=== PATIENT | female | born 1970 | race Two or more races ===

== ENCOUNTER → 2020-02-15 | Outpatient (CLI) | payer OTHER | END | disposition home or self-care (01) | LOC: LAB 14:57 | PROVIDERS: ATTEND Nurse Practitioner Family | DX: U07.1 COVID-19 (principal) | CPT/HCPCS: 87635 ==

== ENCOUNTER → 2020-07-06 | Outpatient (CLI) | payer BC ==
[2020-07-06 08:52] LABS: Basophils # (auto) 0.1 10 ^3/uL (0-0.2); Basophils % (auto) 2.4 % (0.0-2.0); Eosinophils # (auto) 0.1 10 ^3/uL (0-0.8); Eosinophils % (auto) 1.6 % (0.0-7.0); Hematocrit 41.8 % (36.0-46.0); Hemoglobin 13.6 g/dL (12.2-16.2); Lymphocytes # (auto) 1.5 10 ^3/uL (0.4-5.4); Lymphocytes % (auto) 30.2 % (10.0-50.0); Mean Corpuscular Hemoglobin 25.9 pg (28.0-32.0); Mean Corpuscular Hgb Conc. 32.6 g/dL (32.0-36.0); Mean Corpuscular Volume 79.5 fL (80.0-100.0); Monocytes # (auto) 0.3 10 ^3/uL (0-1.3); Neutrophils # (auto) 2.9 10 ^3/uL (1.6-8.6); Neutrophils % (auto) 59.8 % (37.0-80.0); Platelet Count (auto) 250 10^3/uL (140-450); Red Blood Cells 5.26 10^6/uL (4.0-5.20); Red Cell Distribution Width 16.9 % (11.8-14.3); White Blood Cell 4.9 10^3/uL (4.4-10.8)
[2020-07-06 10:15] LABS: Follicle Stimulating Hormone 34.61 IU/L (SEE BELOW); Leuteinizing Hormone 11.6 IU/L
== END | disposition home or self-care (01) ==
LOC: LAB 08:38
PROVIDERS: ATTEND Obstetrics & Gynecology
DX: Z01.419 Encounter for gynecological examination (general) (routine) without abnormal findings (principal)
CPT/HCPCS: 36415; 82670; 83001; 83002; 84443; 85025

== ENCOUNTER → 2021-03-02 | Outpatient (CLI) | payer BC ==
[2021-03-02 09:30] LABS: Basophils # (auto) 0.1 10 ^3/uL (0-0.2); Basophils % (auto) 1.2 % (0.0-2.0); Eosinophils # (auto) 0.1 10 ^3/uL (0-0.8); Eosinophils % (auto) 1.3 % (0.0-7.0); Hematocrit 43.3 % (36.0-46.0); Hemoglobin 14.5 g/dL (12.2-16.2); Lymphocytes # (auto) 1.9 10 ^3/uL (0.4-5.4); Mean Corpuscular Hemoglobin 27.6 pg (28.0-32.0); Mean Corpuscular Hgb Conc. 33.6 g/dL (32.0-36.0); Mean Corpuscular Volume 82.1 fL (80.0-100.0); Monocytes # (auto) 0.4 10 ^3/uL (0-1.3); Monocytes % (auto) 5.2 % (0.0-12.0); Neutrophils % (auto) 66.3 % (37.0-80.0); Red Blood Cells 5.28 10^6/uL (4.0-5.20); Red Cell Distribution Width 14.2 % (11.8-14.3); White Blood Cell 7.5 10^3/uL (4.4-10.8)
[2021-03-02 11:12] LABS: Albumin 3.6 g/dL (3.4-5.0); Bilirubin, Total 0.5 mg/dL (0.2-1.0); Calcium 8.8 mg/dL (8.5-10.1); Total Protein 7.8 g/dL (6.4-8.2)
== END | disposition home or self-care (01) ==
LOC: LAB 09:14
PROVIDERS: ATTEND Nurse Practitioner Family
DX: I10 Essential (primary) hypertension (principal); E11.9 Type 2 diabetes mellitus without complications; E66.3 Overweight; F41.9 Anxiety disorder, unspecified
CPT/HCPCS: 36415; 80053; 80061; 82043; 83036; 84443; 85025

== ENCOUNTER 2021-07-20 14:53 | Emergency (ER) | payer BC ==
[~2021-07-20] VITALS: Ht 157.5 cm; Wt 77.1 kg
[2021-07-20] MEDS ORDERED: MORPHINE SULFATE 4 MG/ML SYR/VIAL IV ONE (15:00)
[2021-07-20] MEDS ORDERED: PANTOPRAZOLE 40 MG/10 ML VIAL INJ IV ONE (15:00)
[2021-07-20] MEDS ORDERED: SODIUM CHLORIDE 0.9% 1,000 ML IVB ONE (15:00)
[2021-07-20] MEDS ORDERED: ONDANSETRON HCL 4 MG/2 ML VIAL IV ONE (15:00)
[2021-07-20 15:06] VITALS: BP 195/74
[2021-07-20 16:17] LABS: Basophils # (auto) 0.1 10 ^3/uL (0-0.2); Basophils % (auto) 1.1 % (0.0-2.0); Eosinophils # (auto) 0.2 10 ^3/uL (0-0.8); Eosinophils % (auto) 2.2 % (0.0-7.0); Hematocrit 35.6 % (36.0-46.0); Hemoglobin 11.5 g/dL (12.2-16.2); Lymphocytes # (auto) 1.6 10 ^3/uL (0.4-5.4); Lymphocytes % (auto) 22.3 % (10.0-50.0); Mean Corpuscular Hemoglobin 26.5 pg (28.0-32.0); Mean Corpuscular Hgb Conc. 32.4 g/dL (32.0-36.0); Mean Corpuscular Volume 81.7 fL (80.0-100.0); Monocytes # (auto) 0.6 10 ^3/uL (0-1.3); Monocytes % (auto) 8.8 % (0.0-12.0); Neutrophils # (auto) 4.7 10 ^3/uL (1.6-8.6); Neutrophils % (auto) 65.6 % (37.0-80.0); Red Blood Cells 4.36 10^6/uL (4.0-5.20); White Blood Cell 7.1 10^3/uL (4.4-10.8)
[2021-07-20 16:35] LABS: Albumin 3.5 g/dL (3.4-5.0); Calcium 8.4 mg/dL (8.5-10.1); Potassium 4.3 mmol/L (3.5-5.1)
[2021-07-20 16:37] LABS: BUN/Creatinine Ratio 27.7
[2021-07-20 16:39] LABS: Bilirubin, Total 0.2 mg/dL (0.2-1.0); Total Protein 7.2 g/dL (6.4-8.2)
== END 2021-07-20 17:29 | disposition home or self-care (01) ==
LOC: ER 14:53 → EEVIPCON 14:53 → ER 17:29
DX: R10.11 Right upper quadrant pain (principal); E11.9 Type 2 diabetes mellitus without complications; I10 Essential (primary) hypertension; Z98.51 Tubal ligation status
CPT/HCPCS: 36415; 76705; 80053; 82150; 83690; 85025

== ENCOUNTER 2021-08-05 00:53 | Emergency (ER) | payer BC ==
[~2021-08-05] VITALS: Ht 157.5 cm; Wt 72.6 kg
[2021-08-05 01:05] VITALS: BP 165/88
== END 2021-08-05 01:58 | disposition left against medical advice (07) ==
LOC: ER 00:53
DX: R10.30 Lower abdominal pain, unspecified (principal); Z53.21 Procedure and treatment not carried out due to patient leaving prior to being seen by health care provider

== ENCOUNTER 2021-08-05 09:14 | Emergency (ER) | payer BC ==
[~2021-08-05] VITALS: Ht 157.5 cm; Wt 72.6 kg
[2021-08-05] MEDS ORDERED: SODIUM CHLORIDE 0.9% 1,000 ML IV ONE ×2 (10:00)
[2021-08-05] MEDS ORDERED: PANTOPRAZOLE 40 MG/10 ML VIAL INJ IV ONE (10:00)
[2021-08-05] MEDS ORDERED: HYDROcodone-ACET 5/325MG TAB PO ONE (10:45)
[2021-08-05 12:20] LABS: Basophils # (auto) 0.1 10 ^3/uL (0-0.2); Eosinophils # (auto) 0.1 10 ^3/uL (0-0.8); Eosinophils % (auto) 1.3 % (0.0-7.0); Lymphocytes # (auto) 1.5 10 ^3/uL (0.4-5.4); Mean Corpuscular Volume 80.9 fL (80.0-100.0)
[2021-08-05 12:23] LABS: Basophils % (auto) 0.9 % (0.0-2.0); Hematocrit 33.6 % (36.0-46.0); Hemoglobin 10.8 g/dL (12.2-16.2); Lymphocytes % (auto) 20.8 % (10.0-50.0); Mean Corpuscular Hemoglobin 25.9 pg (28.0-32.0); Mean Corpuscular Hgb Conc. 32.1 g/dL (32.0-36.0); Monocytes # (auto) 0.6 10 ^3/uL (0-1.3); Monocytes % (auto) 8.8 % (0.0-12.0); Neutrophils # (auto) 4.9 10 ^3/uL (1.6-8.6); Neutrophils % (auto) 68.2 % (37.0-80.0); Red Blood Cells 4.16 10^6/uL (4.0-5.20); Red Cell Distribution Width 14.3 % (11.8-14.3); White Blood Cell 7.2 10^3/uL (4.4-10.8)
[2021-08-05 12:31] LABS: Albumin 3.2 g/dL (3.4-5.0); Calcium 7.9 mg/dL (8.5-10.1); Potassium 4.1 mmol/L (3.5-5.1)
[2021-08-05 12:36] LABS: BUN/Creatinine Ratio 23.3; Bilirubin, Total 0.3 mg/dL (0.2-1.0); Total Protein 6.7 g/dL (6.4-8.2)
== END 2021-08-05 15:50 | disposition home or self-care (01) ==
LOC: ER 09:14
DX: R10.84 Generalized abdominal pain (principal); R11.2 Nausea with vomiting, unspecified; N83.209 Unspecified ovarian cyst, unspecified side; E11.9 Type 2 diabetes mellitus without complications; I10 Essential (primary) hypertension; Z98.51 Tubal ligation status; Z88.6 Allergy status to analgesic agent
CPT/HCPCS: 36415; 74176; 76856; 80053; 82150; 83690; 84484; 85025; 86304; 93005; 96361; 96374; 99285; C9113; J7030

== ENCOUNTER → 2022-02-03 | Outpatient (CLI) | payer BC ==
[~2022-02-03] MED LIST: FLUO20TA34 PO; LISI40TA11 PO; SITA100T7 PO
[2022-02-03 08:01] LABS: Amylase 77 U/L (25-115)
[2022-02-03 08:06] LABS: Cholesterol 136 mg/dL (< 200); HDL Cholesterol 25 mg/dL (40-59); LDL Cholesterol 83 mg/dL (< 100); Lipase 241 U/L (73-393); Triglycerides 157 mg/dL (< 150)
== END | disposition home or self-care (01) ==
LOC: LAB 07:22
PROVIDERS: ATTEND Internal Medicine
DX: E11.9 Type 2 diabetes mellitus without complications (principal)
CPT/HCPCS: 36415; 80061; 82043; 82150; 83690

== ENCOUNTER 2022-02-22 15:03 | Inpatient (IN) | payer BC ==
[~2022-02-22] VITALS: Ht 157.5 cm; Wt 84.3 kg
[2022-02-22] MEDS ORDERED: HYDR-3682 PO (20:16)
[2022-02-22] MEDS ORDERED: DAPA1TAB4 PO (20:16)
[2022-02-22] MEDS ORDERED: HYDR25TA5 PO (20:16)
[2022-02-22] MEDS ORDERED: PANT40T PO (20:16)
[2022-02-22] MEDS ORDERED: METF-370 PO (20:16)
[2022-02-22] MEDS ORDERED: ACETAMINOPHEN 325 MG TAB PO PRN (21:15)
[2022-02-22] MEDS ORDERED: ONDANSETRON HCL 4 MG/2 ML VIAL IV PRN (21:15)
[2022-02-22] MEDS ORDERED: DEXTROSE (50%) 50ML SYRG IV PRN (21:15)
[2022-02-22] MEDS ORDERED: DOCUSATE SOD 100 MG CAP PO PRN (21:15)
[2022-02-22] MEDS ORDERED: ALUM & MAG HYDROX-SIMETH LIQ(MAALOX) 30 ML PO PRN (21:15)
[2022-02-22] MEDS ORDERED: MORPHINE SULFATE INJ 2 MG/ml SYRG IV PRN (21:15)
[2022-02-22] MEDS ORDERED: NITROGLYCERIN 0.4 MG SL TAB SL PRN (21:15)
[2022-02-22 22:00] VITALS: BP 170/100
[2022-02-22] MEDS: ACCU-CHEK COMFORT CURVE STRIP VI SCH (22:23)
[2022-02-22] MEDS: SODIUM CHLOR 0.9% PF (SALINE LOCK) 10ML VIAL/SYR IV SCH (22:24)
[2022-02-22] MEDS: InsuLIN REG 1unit/0.01ml Soln (100units/ml) SC SCH (22:24)
[2022-02-22] MEDS: TEMAZEPAM 15 MG CAP PO PRN (22:25)
[2022-02-22] MEDS: cloNIDine HCL 0.1 MG TAB PO PRN (22:25)
[2022-02-22] MEDS: SODIUM CHLORIDE 0.9% 1,000 ML IV SCH (23:41)
[2022-02-23 04:42] LABS: Basophils # (auto) 0.1 10 ^3/uL (0-0.2); Basophils % (auto) 1.4 % (0.0-2.0); Eosinophils # (auto) 0.7 10 ^3/uL (0-0.8); Eosinophils % (auto) 7.1 % (0.0-7.0); Hematocrit 34.2 % (36.0-46.0); Hemoglobin 11.5 g/dL (12.2-16.2); Lymphocytes # (auto) 2.3 10 ^3/uL (0.4-5.4); Lymphocytes % (auto) 22.9 % (10.0-50.0); Mean Corpuscular Hemoglobin 27.7 pg (28.0-32.0); Mean Corpuscular Hgb Conc. 33.5 g/dL (32.0-36.0); Mean Corpuscular Volume 82.6 fL (80.0-100.0); Monocytes # (auto) 0.7 10 ^3/uL (0-1.3); Monocytes % (auto) 6.5 % (0.0-12.0); Neutrophils # (auto) 6.3 10 ^3/uL (1.6-8.6); Neutrophils % (auto) 62.1 % (37.0-80.0); Red Blood Cells 4.14 10^6/uL (4.0-5.20); Red Cell Distribution Width 15.1 % (11.8-14.3); White Blood Cell 10.1 10^3/uL (4.4-10.8)
[2022-02-23 04:57] LABS: INR 0.94 (0.9-1.15); Partial Thromboplastin Time 25.8 sec (23.6-33.0)
[2022-02-23 05:00] VITALS: BP 89/38
[2022-02-23 05:04] LABS: Albumin 3.1 g/dL (3.4-5.0); BUN/Creatinine Ratio 28.4; Calcium 8.4 mg/dL (8.5-10.1); Magnesium 2.1 mg/dL (1.6-2.6); Potassium 3.6 mmol/L (3.5-5.1)
[2022-02-23 05:07] LABS: Bilirubin, Total 0.2 mg/dL (0.2-1.0); Total Protein 6.6 g/dL (6.4-8.2)
[2022-02-23] MEDS: ACCU-CHEK COMFORT CURVE STRIP VI SCH ×4 (06:36→21:50)
[2022-02-23] MEDS: SODIUM CHLOR 0.9% PF (SALINE LOCK) 10ML VIAL/SYR IV SCH ×3 (06:36→21:56)
[2022-02-23] MEDS: InsuLIN REG 1unit/0.01ml Soln (100units/ml) SC SCH ×4 (06:37→21:54)
[2022-02-23] MEDS ORDERED: ERGOCALCIFEROL 50,000 UNIT(1.25MG) CAP PO SCH (07:15)
[2022-02-23 09:00] VITALS: BP 106/62
[2022-02-23] MEDS: LISINOPRIL 10 MG TAB PO SCH (10:00)
[2022-02-23 10:45] LABS: Urine Bacteria FEW /hpf (None Seen); Urine Blood Negative /uL (Negative); Urine Specific Gravity 1.012 (1.001-1.035); Urine WBC 1 /hpf (0 - 5)
[2022-02-23] MEDS ORDERED: LORazepam 2MG/ML-1ML VIAL IV PRN (11:15)
[2022-02-23 13:00] VITALS: BP 144/82
[2022-02-23 13:23] LABS: INR 0.92 (0.9-1.15); Partial Thromboplastin Time 25.6 sec (23.6-33.0)
[2022-02-23] MEDS: SODIUM CHLORIDE 0.9% 1,000 ML IV SCH (13:55)
[2022-02-23 16:44] VITALS: BP 123/79
[2022-02-23] MEDS: HYDROcodone-ACET 5/325MG TAB PO PRN (21:47)
[2022-02-23 22:00] VITALS: BP 138/78
[2022-02-24 05:04] VITALS: BP 122/65
[2022-02-24 05:13] LABS: Basophils # (auto) 0.1 10 ^3/uL (0-0.2); Basophils % (auto) 1.1 % (0.0-2.0); Eosinophils # (auto) 0.6 10 ^3/uL (0-0.8); Eosinophils % (auto) 8.1 % (0.0-7.0); Hematocrit 34.2 % (36.0-46.0); Hemoglobin 11.6 g/dL (12.2-16.2); Lymphocytes # (auto) 2.3 10 ^3/uL (0.4-5.4); Lymphocytes % (auto) 30.3 % (10.0-50.0); Mean Corpuscular Hemoglobin 27.9 pg (28.0-32.0); Mean Corpuscular Hgb Conc. 33.8 g/dL (32.0-36.0); Mean Corpuscular Volume 82.5 fL (80.0-100.0); Monocytes # (auto) 0.5 10 ^3/uL (0-1.3); Monocytes % (auto) 6.5 % (0.0-12.0); Neutrophils # (auto) 4.2 10 ^3/uL (1.6-8.6); Red Blood Cells 4.14 10^6/uL (4.0-5.20); Red Cell Distribution Width 15.1 % (11.8-14.3); White Blood Cell 7.7 10^3/uL (4.4-10.8)
[2022-02-24 05:27] LABS: Calcium 8.2 mg/dL (8.5-10.1)
[2022-02-24 05:30] LABS: BUN/Creatinine Ratio 26.9
[2022-02-24] MEDS: SODIUM CHLOR 0.9% PF (SALINE LOCK) 10ML VIAL/SYR IV SCH ×3 (05:44→21:24)
[2022-02-24] MEDS: ACCU-CHEK COMFORT CURVE STRIP VI SCH ×5 (06:30→21:17)
[2022-02-24] MEDS: InsuLIN REG 1unit/0.01ml Soln (100units/ml) SC SCH ×5 (06:31→21:24)
[2022-02-24] MEDS: SODIUM CHLORIDE 0.9% 1,000 ML IV SCH (06:48)
[2022-02-24] MEDS ORDERED: ceFAZolin 1GM/50ML 100 ML IV ONE (09:04)
[2022-02-24 09:12] VITALS: BP 154/79
[2022-02-24] MEDS ORDERED: SUCCINYLCHOLINE CHLORIDE 20 MG/ML 10ML VIAL IV ONE (09:45)
[2022-02-24] MEDS ORDERED: BUPIVACAINE 0.25% INJ 50ML VIAL ONE (09:45)
[2022-02-24] MEDS: LISINOPRIL 10 MG TAB PO SCH (10:00)
[2022-02-24] MEDS ORDERED: ONDA-144 PO (10:27)
[2022-02-24] MEDS ORDERED: DOCU-94 PO (10:27)
[2022-02-24] MEDS ORDERED: IBUP800T27 PO (10:27)
[2022-02-24] MEDS ORDERED: HYDR-4902 PO (10:27)
[2022-02-24] MEDS: HYDROmorphone HCL 2 MG/ML VL/or syr ONE ×2 (12:05→12:37)
[2022-02-24] MEDS ORDERED: ACCU-CHEK COMFORT CURVE STRIP VI ONE (12:30)
[2022-02-24] MEDS ORDERED: HYDROmorphone HCL 2 MG/ML VL/or syr IV PRN ×2 (12:30)
[2022-02-24 13:00] VITALS: BP 127/57
[2022-02-24 16:59] VITALS: BP 158/78
[2022-02-24] MEDS: MORPHINE SULFATE INJ 2 MG/ml SYRG IV PRN ×2 (17:05→21:13)
[2022-02-24] MEDS: cloNIDine HCL 0.1 MG TAB PO PRN (21:28)
[2022-02-24 22:00] VITALS: BP 153/76
[2022-02-24] MEDS: TEMAZEPAM 15 MG CAP PO PRN (22:12)
[2022-02-25 05:00] VITALS: BP 136/66
[2022-02-25] MEDS: MORPHINE SULFATE INJ 2 MG/ml SYRG IV PRN (05:50)
[2022-02-25] MEDS: ACCU-CHEK COMFORT CURVE STRIP VI SCH (06:45)
[2022-02-25] MEDS: SODIUM CHLOR 0.9% PF (SALINE LOCK) 10ML VIAL/SYR IV SCH (06:55)
[2022-02-25] MEDS: SODIUM CHLORIDE 0.9% 1,000 ML IV SCH (06:57)
[2022-02-25] MEDS: InsuLIN REG 1unit/0.01ml Soln (100units/ml) SC SCH (06:59)
[2022-02-25 07:22] VITALS: BP 136/70
[2022-02-25] MEDS: HYDROcodone-ACET 5/325MG TAB PO PRN ×2 (07:46→09:02)
[2022-02-25 09:00] VITALS: BP 155/53
[2022-02-25] MEDS: LISINOPRIL 10 MG TAB PO SCH (09:03)
[2022-02-25] MEDS ORDERED: CEPH-509 PO (10:03)
== END 2022-02-25 10:40 | disposition home or self-care (01) | DRG 743 ==
LOC: CENTRAL 19:00
PROVIDERS: ADMIT Internal Medicine; ATTEND Internal Medicine
PROC: 0UT24ZZ Resection of Bilateral Ovaries, Percutaneous Endoscopic Approach (ICD-10-PCS; 2022-02-24)
PROC: 0UT74ZZ Resection of Bilateral Fallopian Tubes, Percutaneous Endoscopic Approach (ICD-10-PCS; 2022-02-24)
PROC: 8E0W4CZ Robotic Assisted Procedure of Trunk Region, Percutaneous Endoscopic Approach (ICD-10-PCS; 2022-02-24)
PROC: 0UT94ZZ Resection of Uterus, Percutaneous Endoscopic Approach (ICD-10-PCS; principal; 2022-02-24 10:03)
DX: N93.9 Abnormal uterine and vaginal bleeding, unspecified (principal); N92.0 Excessive and frequent menstruation with regular cycle; I10 Essential (primary) hypertension; E11.65 Type 2 diabetes mellitus with hyperglycemia; F41.9 Anxiety disorder, unspecified; E66.9 Obesity, unspecified; E11.9 Type 2 diabetes mellitus without complications; F32.A Depression, unspecified; Z68.34 Body mass index [BMI] 34.0-34.9, adult; Z88.5 Allergy status to narcotic agent; Z20.822 Contact with and (suspected) exposure to COVID-19
CPT/HCPCS: 36415; 71046; 80048; 80053; 81001; 81025; 82306; 82962; 83036; 83735; 84443; 85025; 85610; 85730; 86304; 86850; 86900; 86901; 93005; 93306; G0378; J0330; J0690; J1815; J2405; J3490

== ENCOUNTER 2022-04-06 06:23 | Day surgery (SDC) | payer BC ==
[2022-04-05 12:49] LABS: Basophils # (auto) 0.1 10 ^3/uL (0-0.2); Basophils % (auto) 1.1 % (0.0-2.0); Eosinophils # (auto) 0.3 10 ^3/uL (0-0.8); Hematocrit 41.5 % (36.0-46.0); Hemoglobin 13.5 g/dL (12.2-16.2); Lymphocytes # (auto) 2.1 10 ^3/uL (0.4-5.4); Lymphocytes % (auto) 22.3 % (10.0-50.0); Mean Corpuscular Hemoglobin 27.2 pg (28.0-32.0); Mean Corpuscular Hgb Conc. 32.5 g/dL (32.0-36.0); Mean Corpuscular Volume 83.7 fL (80.0-100.0); Monocytes # (auto) 0.5 10 ^3/uL (0-1.3); Monocytes % (auto) 4.9 % (0.0-12.0); Neutrophils # (auto) 6.4 10 ^3/uL (1.6-8.6); Neutrophils % (auto) 68.7 % (37.0-80.0); Red Blood Cells 4.96 10^6/uL (4.0-5.20); Red Cell Distribution Width 14.3 % (11.8-14.3); White Blood Cell 9.3 10^3/uL (4.4-10.8)
[2022-04-05 13:06] LABS: INR 0.92 (0.9-1.15); Partial Thromboplastin Time 25.7 sec (24.6-33.4)
[2022-04-05 13:20] LABS: Urine Bacteria NONE SEEN /hpf (None Seen); Urine Blood Negative /uL (Negative); Urine Specific Gravity 1.035 (1.001-1.035); Urine WBC <1 /hpf (0 - 5)
[~2022-04-06] VITALS: Ht 154.9 cm; Wt 77.1 kg
[~2022-04-06 06:23] MED LIST changes: +DAPA1TAB4 PO; +DOCU-94 PO; +HYDR-3682 PO; +HYDR25TA5 PO; +METF-370 PO; +PANT40T PO
[2022-04-06] MEDS ORDERED: ETOMIDATE (2MG/ML) 20ML VIAL IV ONE (06:24)
[2022-04-06] MEDS ORDERED: ONDANSETRON HCL 4 MG/2 ML VIAL IV ONE (06:24)
[2022-04-06] MEDS ORDERED: SUCCINYLCHOLINE CHLORIDE 20 MG/ML 10ML VIAL IV ONE (06:24)
[2022-04-06] MEDS ORDERED: ceFAZolin 1GM/50ML 100 ML IV ONE (07:58)
[2022-04-06] MEDS ORDERED: MEPERIDINE HCL (50 MG/ML) 1 ML VIAL ONE (08:19)
[2022-04-06] MEDS ORDERED: MIDAZOLAM HCL 2MG/2ML 2ml VIAL (1mg/ml) ONE (08:19)
[2022-04-06] MEDS ORDERED: fentaNYL CITRATE 100 MCG/2 ML VL ONE (08:19)
[2022-04-06] MEDS ORDERED: MIDAZOLAM HCL 2MG/2ML 2ml VIAL (1mg/ml) IV PRN (08:30)
[2022-04-06] MEDS ORDERED: HYDROmorphone HCL 2 MG/ML VL/or syr IV PRN (08:30)
[2022-04-06] MEDS ORDERED: MORPHINE SULFATE 4 MG/ML SYR/VIAL IV PRN (08:30)
[2022-04-06] MEDS ORDERED: METOCLOPRAMIDE HCL 5MG/ml INJ 2ml VIAL IV PRN (08:30)
[2022-04-06] MEDS ORDERED: ONDANSETRON HCL 4 MG/2 ML VIAL IV PRN (08:30)
[2022-04-06] MEDS ORDERED: LABETALOL HCL 5 MG/ML 4ML SYRINGE IV PRN (08:30)
[2022-04-06] MEDS ORDERED: ACCU-CHEK COMFORT CURVE STRIP VI ONE (08:30)
[2022-04-06] MEDS ORDERED: ePHEDrine SULFATE 50 MG/ML AMP IV PRN (08:30)
[2022-04-06] MEDS ORDERED: ceFAZolin 1GM VL ONE (08:39)
[2022-04-06] MEDS ORDERED: LIDOCAINE 1%-Mpf/Epinephrine 1:200,000 ONE (08:39)
[2022-04-06] MEDS ORDERED: CONJ ESTROGENS 0.625MG/GM VAG CRM 30GM PV ONE (08:39)
[2022-04-06] MEDS ORDERED: PROPOFOL 10 MG/ML 20 ML IV ONE (09:00)
[2022-04-06] MEDS ORDERED: DexAMETHasone SOD PHOS 10MG/1ML VIAL INJ ONE (09:00)
[2022-04-06] MEDS ORDERED: NEOMYCIN-BACITRACIN-POLYM 15GM TOP OINT TOP ONE (09:37)
[2022-04-06] MEDS ORDERED: InsuLIN REG 1unit/0.01ml Soln (100units/ml) ONE ×2 (10:05→11:14)
[2022-04-06] MEDS ORDERED: InsuLIN REG 1unit/0.01ml Soln (100units/ml) SC ONE ×2 (10:15→11:15)
[2022-04-06 11:15] VITALS: BP 136/69
[2022-04-06] MEDS ORDERED: InsuLIN REG 1unit/0.01ml Soln (100units/ml) IV ONE (11:15)
== END 2022-04-06 11:45 | disposition home or self-care (01) ==
LOC: SUR 06:23
PROVIDERS: ATTEND Urology
DX: N39.3 Stress incontinence (female) (male) (principal); F41.9 Anxiety disorder, unspecified; F32.A Depression, unspecified; I10 Essential (primary) hypertension; E11.9 Type 2 diabetes mellitus without complications; Z90.89 Acquired absence of other organs; Z90.710 Acquired absence of both cervix and uterus; Z91.041 Radiographic dye allergy status; Z20.822 Contact with and (suspected) exposure to COVID-19; Z82.49 Family history of ischemic heart disease and other diseases of the circulatory system; Z83.3 Family history of diabetes mellitus
CPT/HCPCS: 36415; 57288; 81001; 82962; 85025; 85610; 85730; J0330; J0690; J1100; J1170; J1815; J2001; J2175; J2250; J2405; J2704; J3010; Q4140; U0003

== ENCOUNTER → 2022-10-17 | Outpatient (CLI) | payer BC ==
[2022-10-17 11:56] LABS: Follicle Stimulating Hormone 48.36 IU/L (SEE BELOW); Leuteinizing Hormone 19.5 IU/L
== END | disposition home or self-care (01) ==
LOC: LAB 09:50
PROVIDERS: ATTEND Obstetrics & Gynecology
DX: N95.1 Menopausal and female climacteric states (principal)
CPT/HCPCS: 36415; 82670; 83001; 83002; 84403; 84443

== ENCOUNTER → 2023-01-05 | Outpatient (CLI) | payer BC ==
[2023-01-05 06:54] LABS: Urine Bacteria NONE SEEN /hpf (None Seen); Urine Blood Negative /uL (Negative); Urine Hyaline Cast FEW /lpf (0 - 2); Urine Mucus FEW (None Seen); Urine WBC 5 /hpf (0 - 5)
[2023-01-05 07:00] LABS: Basophils # (auto) 0.1 10 ^3/uL (0-0.2); Basophils % (auto) 0.9 % (0.0-2.0); Eosinophils # (auto) 0.2 10 ^3/uL (0-0.8); Eosinophils % (auto) 2.6 % (0.0-7.0); Hematocrit 40.6 % (36.0-46.0); Hemoglobin 13.4 g/dL (12.2-16.2); Lymphocytes # (auto) 2.2 10 ^3/uL (0.4-5.4); Lymphocytes % (auto) 26.3 % (10.0-50.0); Mean Corpuscular Hgb Conc. 33.1 g/dL (32.0-36.0); Mean Corpuscular Volume 84.6 fL (80.0-100.0); Monocytes # (auto) 0.6 10 ^3/uL (0-1.3); Monocytes % (auto) 6.5 % (0.0-12.0); Neutrophils # (auto) 5.4 10 ^3/uL (1.6-8.6); Neutrophils % (auto) 63.7 % (37.0-80.0); White Blood Cell 8.5 10^3/uL (4.4-10.8)
[2023-01-05 07:12] LABS: Albumin 3.4 g/dL (3.4-5.0)
[2023-01-05 07:20] LABS: Bilirubin, Total 0.2 mg/dL (0.2-1.0); Calcium 8.5 mg/dL (8.5-10.1); Total Protein 7.2 g/dL (6.4-8.2)
== END | disposition home or self-care (01) ==
LOC: LAB 06:15
PROVIDERS: ATTEND Internal Medicine
DX: E11.9 Type 2 diabetes mellitus without complications (principal)
CPT/HCPCS: 36415; 80053; 80061; 81001; 83036; 85025

== ENCOUNTER → 2023-05-02 | Outpatient (CLI) | payer BC ==
[~2023-05-02] MED LIST changes: -FLUO20TA34 PO; +FLUO20TA36 PO; -LISI40TA11 PO; +LISI40TA16 PO
[2023-05-02 10:12] LABS: Alanine Aminotransferase 39 U/L (7-40); Alkaline Phosphatase 120 U/L (46-116); Aspartate Aminotransferase 17 U/L (13-40); Cholesterol 106 mg/dL (< 200); HDL Cholesterol 26 mg/dL (40-59); LDL Cholesterol 64 mg/dL (< 100); Triglycerides 115 mg/dL (< 150)
[2023-05-02 10:13] LABS: Bilirubin, Direct < 0.1 mg/dL (<0.3); Bilirubin, Total 0.2 mg/dL (0.2-1.0); Total Protein 6.9 g/dL (5.7-8.2)
== END | disposition home or self-care (01) ==
LOC: LAB 08:53
PROVIDERS: ATTEND Internal Medicine
DX: E11.9 Type 2 diabetes mellitus without complications (principal); E78.5 Hyperlipidemia, unspecified
CPT/HCPCS: 36415; 80061; 80076; 83036

== ENCOUNTER → 2024-01-04 | Day surgery (SDC) | payer BC ==
[2024-01-02 08:30] LABS: Basophils # (auto) 0.2 10 ^3/uL (0-0.2); Basophils % (auto) 2.1 % (0.0-2.0); Eosinophils # (auto) 0.3 10 ^3/uL (0-0.8); Eosinophils % (auto) 2.9 % (0.0-7.0); Hematocrit 40.9 % (36.0-46.0); Hemoglobin 13.3 g/dL (12.2-16.2); Lymphocytes # (auto) 3.1 10 ^3/uL (0.4-5.4); Lymphocytes % (auto) 31.5 % (10.0-50.0); Mean Corpuscular Hemoglobin 28.3 pg (28.0-32.0); Mean Corpuscular Hgb Conc. 32.5 g/dL (32.0-36.0); Monocytes # (auto) 0.7 10 ^3/uL (0-1.3); Monocytes % (auto) 6.6 % (0.0-12.0); Neutrophils # (auto) 5.7 10 ^3/uL (1.6-8.6); Neutrophils % (auto) 56.9 % (37.0-80.0); Red Cell Distribution Width 14.5 % (11.8-14.3)
[2024-01-02 09:09] LABS: Alanine Aminotransferase 22 U/L (7-40); Albumin 4.4 g/dL (3.2-4.8); Alkaline Phosphatase 119 U/L (46-116); Anion Gap 6 (5-15); Aspartate Aminotransferase 16 U/L (13-40); BUN/Creatinine Ratio 23.7 (10.0-20.0); Bilirubin, Total 0.3 mg/dL (0.2-1.0); Blood Urea Nitrogen 22 mg/dL (9-23); Calcium 9.6 mg/dL (8.5-10.1); Carbon Dioxide 28 mmol/L (20-30); Chloride 105 mmol/L (98-107); Glucose 156 mg/dL (74-106); Potassium 4.7 mmol/L (3.5-5.1); Sodium 139 mmol/L (136-145); Total Protein 7.5 g/dL (5.7-8.2)
[2024-01-02 09:28] LABS: INR 0.95 (0.9-1.15); Partial Thromboplastin Time 27.7 SEC (24.5-34.5); Prothrombin Time 10.1 sec (9.3-11.8)
[~2024-01-04] VITALS: Ht 154.9 cm; Wt 77.1 kg
[~2024-01-04] MED LIST changes: +DEXTROSE 50% SYRINGE 50 ML IV ONE; +FLUO60TA7 PO; +IBUP1TAB5 PO; +KETAMINE 50mg/ML 1ml syringe ONE; +MIDAZOLAM HCL 2MG/2ML 2ml VIAL (1mg/ml) ONE; +ONDANSETRON HCL 4 MG/2 ML VIAL IV ONE; +ONDANSETRON HCL 4 MG/2 ML VIAL ONE; +PROPOFOL 10 MG/ML 20 ML IV ONE; +fentaNYL CITRATE 100 MCG/2 ML VL ONE
[2024-01-04 10:20] VITALS: TEMP 97.8
[2024-01-04] MEDS: DEXTROSE (50%) 50ML SYRG IV ONE (10:50)
[2024-01-04 12:31] VITALS: O2SAT 100
[2024-01-04 13:10] VITALS: BP 112/59; PULSE 82; RESP 11; O2SAT 95
== END | disposition home or self-care (01) ==
LOC: GI 08:16
PROVIDERS: ATTEND Internal Medicine Gastroenterology
DX: R19.4 Change in bowel habit (principal); K29.50 Unspecified chronic gastritis without bleeding; B96.81 Helicobacter pylori [H. pylori] as the cause of diseases classified elsewhere; K31.A0 Gastric intestinal metaplasia, unspecified; K21.9 Gastro-esophageal reflux disease without esophagitis; J33.8 Other polyp of sinus; I10 Essential (primary) hypertension; E11.9 Type 2 diabetes mellitus without complications; F41.8 Other specified anxiety disorders; Z79.84 Long term (current) use of oral hypoglycemic drugs; Z79.899 Other long term (current) drug therapy; Z90.710 Acquired absence of both cervix and uterus; Z85.43 Personal history of malignant neoplasm of ovary; Z98.51 Tubal ligation status; Z98.890 Other specified postprocedural states; Z88.6 Allergy status to analgesic agent; Z82.49 Family history of ischemic heart disease and other diseases of the circulatory system; Z83.3 Family history of diabetes mellitus
CPT/HCPCS: 36415; 43239; 45378; 80053; 82962; 85025; 85610; 85730; 88305; 88312; 88342; J2250; J2405; J2704; J3010; J7042